=== PATIENT | female | born 1995 | race Caucasian/White ===

== ENCOUNTER 2016-10-24 23:55 | Emergency (ER) | payer OTHER ==
[~2016-10-24] VITALS: Ht 175.3 cm; Wt 62.5 kg
[~2016-10-24 23:55] MED LIST: ALBUAER19 INH; DEXT30TA7 PO
[2016-10-24 23:59] VITALS: TEMP 36.4; Ht 175.3 cm; Wt 62.5 kg
[2016-10-25] MEDS ORDERED: BUPR75TA20 PO (00:24)
[2016-10-25] MEDS ORDERED: OLAN-111 PO (00:24)
[2016-10-25] MEDS ORDERED: VNTHFA/IN INH (00:24)
[2016-10-25] MEDS ORDERED: TOPI100T20 PO (00:24)
[2016-10-25] MEDS ORDERED: BUPR-83 PO (00:24)
[2016-10-25] MEDS ORDERED: HYDR-5688 PO (00:50)
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
[2016-10-25] MEDS ORDERED: NORCO 5/325MG HOME PACK PO ONE (01:00)
[2016-10-25 01:10] VITALS: BP 100/60; PULSE 82; O2SAT 97
--- NOTE | 2016-10-25 06:37 | DIAGNOSTIC IMAGING REPORT ---
LEFT ANKLE MIN 3 VIEWS ROUTINE CLINICAL HISTORY: Left ankle pain status post trauma COMPARISON: None. DISCUSSION: No fractures or dislocations are visualized. IMPRESSION: No fractures or dislocations identified. Electronically signed by: Yusef Armendariz M.D. 10/25/2016 6:36 AM Dictated Date/Time: 10/25/2016 6:35 AM
--- NOTE | 2016-10-25 06:50 | DIAGNOSTIC IMAGING REPORT ---
LEFT FOOT MIN 3 VIEWS ROUTINE CLINICAL HISTORY: Left foot pain status post trauma COMPARISON: None. DISCUSSION: No fractures or dislocations are visualized. There is no evidence for soft tissue swelling. IMPRESSION: No fractures or dislocations identified. Electronically signed by: Yusef Armendariz M.D. 10/25/2016 6:49 AM Dictated Date/Time: 10/25/2016 6:48 AM
== END 2016-10-25 01:12 | disposition home or self-care (01) ==
LOC: C.EDB 23:58 → C.EDC 10-25 01:12
DX: S99.922A Unspecified injury of left foot, initial encounter (principal); V03.00XA Pedestrian on foot injured in collision with car, pick-up truck or van in nontraffic accident, initial encounter; F41.9 Anxiety disorder, unspecified; F31.9 Bipolar disorder, unspecified; F17.200 Nicotine dependence, unspecified, uncomplicated; Z79.899 Other long term (current) drug therapy

== ENCOUNTER 2016-12-11 10:26 | Emergency (ER) | payer OTHER ==
[~2016-12-11] VITALS: Ht 175.3 cm; Wt 56.9 kg
[~2016-12-11 10:26] MED LIST changes: -ALBUAER19 INH; +BUPR-83 PO; +BUPR75TA20 PO; +HYDR-5688 PO; +OLAN-111 PO; +TOPI100T20 PO; +VNTHFA/IN INH
[2016-12-11 10:34] VITALS: BP 134/90; PULSE 103; TEMP 36.9; O2SAT 96; Ht 175.3 cm; Wt 56.9 kg
== END 2016-12-11 10:36 | disposition left against medical advice (07) ==
LOC: C.EDB 10:27 → C.ED 10:36
DX: R06.00 Dyspnea, unspecified (principal)

== ENCOUNTER → 2017-05-16 | Outpatient (CLI) | payer OTHER ==
[~2017-05-16] MED LIST changes: +GADAVIST IV PRN; -HYDR-5688 PO
--- NOTE | 2017-05-16 10:16 | DIAGNOSTIC IMAGING REPORT ---
MRI OF THE BRAIN AND IACS WITHOUT AND WITH IV CONTRAST CLINICAL HISTORY: Dizziness, worsening right-sided hearing loss. Tinnitus. COMPARISON STUDY: Noncontrast head CT performed January 2015 TECHNIQUE: MRI of the brain was performed from the vertex to the skull base utilizing various T1 and T2 weighted sequences. Following the IV administration of 7 mL of Gadavist contrast, additional enhanced images were obtained. FINDINGS: Sagittal T1, axial diffusion, proton density and T2 weighted axial, coronal FLAIR, and pre and post axial T1-weighted images were acquired. These were supplemented with post gadolinium coronal T1 weighted images. No intra or extra-axial mass lesions are visualized. Axial diffusion-weighted images reveal no evidence of acute or subacute infarction. There is no evidence of ventricular dilatation. Proton density T2-weighted and FLAIR images reveal no significant intraparenchymal signal abnormalities. No cerebellopontine angle masses are visualized. The 7th and 8th nerve complexes appear normal bilaterally. There are no abnormal flow voids. There is no evidence of pathologic enhancement. IMPRESSION: Normal MRI of the brain and IACs Electronically signed by: Yusef Armendariz M.D. 05/16/2017 10:15 AM Dictated Date/Time: 05/16/2017 10:11 AM
== END | disposition home or self-care (01) ==
LOC: C.MRI 09:12
PROVIDERS: ATTEND Family Medicine
DX: R42 Dizziness and giddiness (principal); H93.19 Tinnitus, unspecified ear; H91.90 Unspecified hearing loss, unspecified ear

== ENCOUNTER 2020-10-19 15:55 | Inpatient (IN) ==
[2020-10-19] MEDS ORDERED: ONDANSETRON INJ 2 MG/ML 2 ML VIAL IV PRN (17:40)
[2020-10-19] MEDS ORDERED: MAGNESIUM HYDROXIDE SUSP 30 ML UDC PO PRN (17:40)
[2020-10-19] MEDS ORDERED: LACTATED RINGER'S 1,000 ML IV SCH (17:45)
[2020-10-19] MEDS ORDERED: ALBUTEROL HFA 8 GM INHALER INH PRN (17:48)
[2020-10-19] MEDS ORDERED: GENTAMICIN CONSULT ACTIVE PRN (17:59)
[2020-10-19] MEDS: KETOROLAC 30 MG/ML VIAL IV PRN (18:43)
[2020-10-19 19:01] LABS: Amphetamines+Metham, Urine Neg (Neg); Barbiturates, Urine Neg (Neg); Benzodiazepine, Urine Neg (Neg); Cocaine, Urine Neg (Neg); MDMA (Ecstacy), Urine Neg (Neg); Methadone, Urine Neg (Neg); Opiate, Urine Pos (Neg); Phencyclidine, Urine Neg (Neg)
[2020-10-19] MEDS: AMPICILLIN 2,000 MG in SODIUM CHLOR 0.9% AD-VAN 100 ML IV SCH (19:05)
[2020-10-19] MEDS ORDERED: ACETAMINOPHEN 1,000 MG/100 ML VIAL IV PRN (19:27)
[2020-10-19] MEDS: CLINDAMYCIN 900 MG in DEXTROSE 5% 50 ML IV SCH (20:00)
[2020-10-19] MEDS: ACETAMINOPHEN 325 MG TAB PO PRN (20:08)
[2020-10-19] MEDS: GENTAMICIN SULFATE IV SCH (20:56)
[2020-10-19] MEDS: DEXTROSE 5% IV SCH (20:56)
[2020-10-19] MEDS: NICOTINE 21 MG/24 HR TDSY TD SCH (20:57)
[2020-10-19 21:10] LABS: Hematocrit (blood only) 31.1 % (37-47); Hemoglobin 10.6 g/dL (12.0-16.0); Mean Corpuscular Hemoglobin 29.2 pg (25-34); Mean Corpuscular Hgb Conc 34.1 g/dL (32-36); Mean Corpuscular Volume 85.7 fL (80-100); Mean Platelet Volume 8.9 fL (7.4-10.4); Platelet Count 320 K/uL (130-400); RDW Coefficient of Variation 12.6 % (11.5-14.5); RDW Standard Deviation 39.7 fL (36.4-46.3); Red Blood Count 3.63 M/uL (4.2-5.4)
[2020-10-19 22:02] LABS: Basophils # (auto) 0.02 K/uL (0-0.2); Basophils % (auto) 0.2 %; Eosinophils # (auto) 0.07 K/uL (0-0.5); Eosinophils % (auto) 0.6 %; Immature Granulocytes # (auto) 0.03 K/uL (0.00-0.02); Immature Granulocytes % (auto) 0.2 %; Lymphocytes # (auto) 3.46 K/uL (1.2-3.4); Lymphocytes % (auto) 28.1 %; Monocytes # (auto) 0.71 K/uL (0.11-0.59); Monocytes % (auto) 5.8 %; Neutrophils # (auto) 8.01 K/uL (1.4-6.5); Neutrophils % (auto) 65.1 %
[2020-10-20] MEDS: AMPICILLIN 2,000 MG in SODIUM CHLOR 0.9% AD-VAN 100 ML IV SCH ×4 (01:11→18:52)
[2020-10-20] MEDS: CLINDAMYCIN 900 MG in DEXTROSE 5% 50 ML IV SCH ×3 (04:04→19:46)
[2020-10-20 06:30] LABS: Basophils # (auto) 0.01 K/uL (0-0.2); Basophils % (auto) 0.1 %; Eosinophils # (auto) 0.05 K/uL (0-0.5); Eosinophils % (auto) 0.7 %; Hematocrit (blood only) 33.2 % (37-47); Hemoglobin 11.1 g/dL (12.0-16.0); Immature Granulocytes # (auto) 0.02 K/uL (0.00-0.02); Immature Granulocytes % (auto) 0.3 %; Lymphocytes # (auto) 2.03 K/uL (1.2-3.4); Lymphocytes % (auto) 28.6 %; Mean Corpuscular Hemoglobin 28.7 pg (25-34); Mean Corpuscular Hgb Conc 33.4 g/dL (32-36); Mean Corpuscular Volume 85.8 fL (80-100); Mean Platelet Volume 8.9 fL (7.4-10.4); Monocytes # (auto) 0.61 K/uL (0.11-0.59); Monocytes % (auto) 8.6 %; Neutrophils # (auto) 4.37 K/uL (1.4-6.5); Neutrophils % (auto) 61.7 %; Platelet Count 312 K/uL (130-400); RDW Coefficient of Variation 12.6 % (11.5-14.5); RDW Standard Deviation 39.6 fL (36.4-46.3); Red Blood Count 3.87 M/uL (4.2-5.4); White Blood Count 7.09 K/uL (4.8-10.8)
[2020-10-20 07:02] LABS: Creatinine Clr Calc Pharmacy 137.2 ml/min; Est GFR (African American) > 150.0 ml/min; Est GFR (Non-African American) 130.1 ml/min
[2020-10-20] MEDS: KETOROLAC 30 MG/ML VIAL IV PRN (07:36)
--- NOTE | 2020-10-20 07:59 | Gynecologic Progress Note ---
Date of Service October 20, 2020 Assessment & Plan (1) Acute pelvic inflammatory disease (PID): Plan: continue current triple antibiotic regimen- had (+) GC on culture from ER evaluation WBC count has dropped from 12,300 to 7,900 this morning. will get transvaginal ultrasound to re-evaluate ovarian masses. urine drug screen done and is positive for opiates although she was given percocet for pain in the ER. Additional screening for heroin was done as not part of the UDS. Patient has a history of heroin/meth use . Admission and Anticipated Discharge Date Admission Date: October 19, 2020 Subjective patient slept through the night on her stomach but still complains pain is 8/10. More alert this morning then upon arrival on the L&D unit yesterday afternoon. She appeared to be very drowsy and falling asleep while talking to her. no vaginal bleeding now. pain is not worse but not better. No nausea and able to tolerate regular diet. Review of Systems Review of Systems: All systems reviewed & are unremarkable except as noted in HPI & below Physical Exam Constitutional: WD/WN, vitals as above Gastrointestinal (Abdomen): normal bowel sounds, soft, nontender, no hepatosplenomegaly minimal tenderness to deep palpation in lower quadrants bilaterally. no rebound or guarding. Psychiatric: A+Ox3, euthymic affect Results & Data ([facility]) Vital Signs (Past 12 Hours) Vital Signs Temp Pulse Resp BP BP Pulse Ox 10/20/20 03:41 98.6 F 75 16 84/52 L 100 10/19/20 23:07 98.1 F 69 16 89/56 L 98 PG Care Time/CCT Total # of Minutes Spent Total Time Spent with Patient: Total time spent is greater than 50% in coordination of care (as documented) at patient's floor/unit and/or counseling patient: Coding Level of Care Code 07203 Subseq Hosp Care Lvl 2 Diagnoses Acute pelvic inflammatory disease (PID) N73.0
[2020-10-20] MEDS: TOPIRAMATE 50 MG TAB PO SCH (08:59)
--- NOTE | 2020-10-20 09:07 | Ultrasound Report ---
PELVIC ULTRASOUND CLINICAL HISTORY: Bilateral ovarian cysts vs tubo-ovarian COMPARISON STUDY: CT of the abdomen and pelvis October 14, 2020. Pelvic ultrasound October 17, 2020. TECHNIQUE: Transabdominal sonography of the pelvis was performed. FINDINGS: The uterus measures 10 x 5.2 x 4.9 cm. A small amount of fluid within the endometrial canal is noted. As before, the left ovary is enlarged, measuring 6.8 x 5.8 x 7 cm. Allowing for measuremen t variability, this is similar to prior ultrasound. Several complex left adnexal lesions are noted, t he largest of which measures 5.8 cm. This is similar to prior ultrasound. This contains low level ech oes. There is color flow within each ovary. A few complex right adnexal lesions measure up to 2.7 cm. The right ovary measures 5.4 x 4.8 x 3.4 cm. There is no free fluid. IMPRESSION: No significant change in multiple complex bilateral ovarian/adnexal lesions since ultraso und of October 17, 2020. The largest is a 5.8 cm left adnexal lesion which contains low-level echoes. A tubo-ovarian abscess is favored. A complex cyst or endometrioma are also within the differential. Sim ilar differential for the right adnexal lesions. ACT 112: Negative or not required by law. Electronically signed by: Lyle Medina M.D. 10/20/2020 9:05 AM
--- NOTE | 2020-10-20 09:52 | Communication Note ---
Date of Service: October 20, 2020 Assuming care of patient. Discussed events to date with Dr. Kumar prior to her departure this AM. Patient with GC+ culture and likely bilateral TOA's present since several weeks ago in retrospective review of multiple ER visits with ultrasound. Seen in office yesterday and found to have pelvic pain c/w PID. As she met criteria for inpatient management with IV antibiotics, she was admitted and started on triple coverage with ampicillin, gentamicin and clindamycin. Ultrasound done earlier this morning was reviewed by this MD and shows stability / no further growth of TOAs, with no evidence of torsion currently. She is afebrile with resolution of leukocytosis, improvement in pain, and plan for now is at least 24 hours of inpatient IV antibiotic therapy. Following this "cooling off" stage, a decision can be made regarding surgical drainage vs outpatient management. Of note, this patient does have a positive drug screen which may be consistent with prescribed opiates, but given her history of IVDA and what was felt to be excessive sedation on her arrival, there is also a pending send-out test to clarify the presence/absence of drugs of abuse. This information would be helpful to have for safe anesthesia should surgical drainage be deemed necessary.
[2020-10-20] MEDS: ACETAMINOPHEN 325 MG TAB PO PRN (11:36)
--- NOTE | 2020-10-20 13:03 | Pharmacy Report ---
Pharmacy Abx Dose Short Note - Date of Service October 20, 2020 - Assessment & Plan Assessment 25 year old F receiving triple antibiotic therapy for pelvic inflammatory disease, possible tubo-ovarian abscess * Leukocytosis resolved, patient afebrile Plan Continue ampicillin, clindamycin and gentamicin Gentamicin * 5 mg/kg (based on actual body weight) IV q 24 hours * Random level obtained ~9 hours after first dose indicates q24h dosing is appropriate Pharmacy will continue to follow and will adjust dose/frequency as necessary. Thank you.
[2020-10-20] MEDS ORDERED: SODIUM CHLORIDE 0.9% 250 ML IV PRN (15:20)
[2020-10-20] MEDS: GENTAMICIN SULFATE IV SCH (21:58)
[2020-10-20] MEDS: DEXTROSE 5% IV SCH (21:58)
[2020-10-20] MEDS: NICOTINE 21 MG/24 HR TDSY TD SCH (22:04)
[2020-10-21] MEDS: AMPICILLIN 2,000 MG in SODIUM CHLOR 0.9% AD-VAN 100 ML IV SCH ×2 (00:43→06:31)
[2020-10-21] MEDS: CLINDAMYCIN 900 MG in DEXTROSE 5% 50 ML IV SCH ×2 (03:54→11:56)
[2020-10-21] MEDS: KETOROLAC 30 MG/ML VIAL IV PRN (06:27)
[2020-10-21 06:57] LABS: Basophils # (auto) 0.01 K/uL (0-0.2); Basophils % (auto) 0.2 %; Eosinophils # (auto) 0.08 K/uL (0-0.5); Eosinophils % (auto) 1.2 %; Hemoglobin 10.8 g/dL (12.0-16.0); Immature Granulocytes # (auto) 0.01 K/uL (0.00-0.02); Immature Granulocytes % (auto) 0.2 %; Lymphocytes % (auto) 30.6 %; Mean Corpuscular Hgb Conc 33.8 g/dL (32-36); Mean Corpuscular Volume 85.8 fL (80-100); Monocytes # (auto) 0.67 K/uL (0.11-0.59); Monocytes % (auto) 10.3 %; Neutrophils # (auto) 3.76 K/uL (1.4-6.5); Neutrophils % (auto) 57.5 %; Platelet Count 309 K/uL (130-400); RDW Coefficient of Variation 12.6 % (11.5-14.5); RDW Standard Deviation 39.6 fL (36.4-46.3); Red Blood Count 3.73 M/uL (4.2-5.4); White Blood Count 6.53 K/uL (4.8-10.8)
--- NOTE | 2020-10-21 07:34 | Gynecologic Progress Note ---
Date of Service October 21, 2020 Assessment & Plan (1) Acute pelvic inflammatory disease (PID): Plan: Gonococcal PID with bilateral TOA and pyometra (or at least fluid in uterine cavity) on ultrasound. Pain management has been accomplished without narcotics for the most part, given her history of drug abuse, but the patient did utilize percocet Rx'ed at ER recently, hence her positive drug screen (heroin negative on secondary testing). Some worsening clinically this morning despite toradol 30min prior to exam. However her WBC remain normal and she is afebrile, so suspicion for rapid worsening or rupture is low. Will see what this morning's US shows, and decision today regarding treatment plan. May involve ongoing medical mgmt, or could consider IR drainage at outside institution. Admission and Anticipated Discharge Date Admission Date: October 19, 2020 Subjective Patient seen this morning with Dr. Goins who is on-coming MD coverage, and who saw her in the office two days ago. Patient notes this morning that her pain, which had been improved, has once again become worse since about 7am and also feels like it has "moved down" lower in her abdomen. She has been NPO since midnight for possible intervention this morning. Prior to that, she was eating regular diet without difficulty. Physical Exam Physical Exam: Resting supine, moving minimally but able to reposition when asked. VSS and WNL as above. Abdomen soft, nondistended. Tender with palpation across both lower quadrants and suprapubic area. No rebound or guarding. Has been voiding without difficulty. Internal/pelvic exam deferred; pelvic US ordered to be done within the next hour. Results & Data ([facility]) Vital Signs (Past 12 Hours) Vital Signs Temp Pulse Resp BP Pulse Ox 10/21/20 04:23 97.9 F 65 16 88/56 L 99 10/20/20 23:22 98.6 F 77 14 90/58 L 99 10/20/20 19:27 98.1 F 85 18 99/62 L PG Care Time/CCT Total # of Minutes Spent Total Time Spent with Patient: Total time spent is greater than 50% in coordination of care (as documented) at patient's floor/unit and/or counseling patient: Coding Level of Care Code 65947 Subseq Hosp Care Lvl 2 Diagnoses Acute pelvic inflammatory disease (PID) N73.0
[2020-10-21] MEDS ORDERED: CALCIUM CARBONATE 500 MG CHEWABLE TAB ONE (07:40)
[2020-10-21] MEDS ORDERED: CALCIUM CARBONATE 500 MG CHEWABLE TAB PO PRN (08:51)
[2020-10-21] MEDS: TOPIRAMATE 50 MG TAB PO SCH (09:27)
[2020-10-21] MEDS ORDERED: ALUMINUM/MAGNESIUM SUSP 18 ML, LIDOCAINE VISCOUS 2% SOLN 6 ML, BARCODE IDENTIFIER 1 EA PO ONE (10:06)
--- NOTE | 2020-10-21 10:09 | XRay Report ---
XR chest 1V portable HISTORY: chest tingling COMPARISON: Chest 10/17/2020. FINDINGS: The lungs are clear. Cardiac silhouette is normal in size. No pleural effusions. No pneumot horax. IMPRESSION: No acute process. ACT 112: Negative or not required by law. Electronically signed by: Ad Leija M.D. 10/21/2020 10:07 AM
[2020-10-21 10:29] LABS: Creatinine Clr Calc Pharmacy 127.6 ml/min; Est GFR (African American) 147.2 ml/min
--- NOTE | 2020-10-21 10:43 | Hospitalist Consultation ---
Date of Consultation October 21, 2020 Assessment & Plan (1) Chest pain: GERD vs. secondary gonococcal involvement (endocarditis) vs. Musculoskeletal vs. Pulmonary process - ECG no acute change- nonspecific ST - CXR negative for acute process - Patient has been NPO, current smoker, past NSAID use- on Tylenol and Toradol for pain IV - GI cocktail followed by daily Protonix - As per her history- although no murmur or further systemic sepsis will obtain ECHO - She has not had cyclical fevers - blood cultures x2 now - BMP with electrolytes for now including ionized calcium and PO4- would recommend repleting as needed- To primary team - If persists further evaluation of pharyngeal involvement of gonococcal infx. ABX per primary team Pain control per primary team VTE per primary team Supervising Physician Co-Signing Physician Notes HEDIS REVIEW NURSE Supervision note: I have personally seen and examined the patient and discussed and verified the kelley points of the history and physical along with the plan with JOSETTE Rubio with the following exceptions and/or additions: This patient is a 25-year-old female with history of asthma, ADHD, migraine headaches, and methamphetamine and heroin abuse, who is admitted for pelvic pain and ovarian masses presumably TOA versus endometriomas. Hospitalist service was consulted for acute onset of chest pain that started overnight and has been constant. The pain is burning in nature and was relieved with a GI cocktail this morning. She does not have a history of reflux but has been on multiple antibiotics and receiving IV NSAIDs. History and ROS reviewed Vitals reviewed Gen: AAOx3, NAD HEENT: Anicteric sclerae, EOMI CV: RRR no mgr nl S1S2 Pulm: CTAB no wcr Abd: +BS soft NT ND no masses or hernias Ext: No edema, no calf tenderness Skin: No rashes, warm/dry Neuro: Full strength throughout Laboratory values reviewed ECG reviewed Chest x-ray reviewed Echocardiogram-normal 25-year-old female here with atypical chest pain-likely GI in nature -She is now tolerating p.o. and recommend transition to Protonix 40 mg p.o. 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 History of Present Illness Reason for Consultation: chest pain Requesting Physician: Dr. Goins Attending Physician: Trinidad Cruz MD, FACOG History of Present Illness 25 YOF with past medical history: methamphetamine use, anxiety with bipolar. Patient was admitted to the OBGYN floor secondary to (+) GC culture done in the EMD on . She was admitted for PID and is currently on Amp, Gent, Clinda. Hosptialist service was consulted for onset of chest pain and tingling to her chest. The patient states that the pain started last night and into this morning, that it comes and goes without any change in activity or predisposing symptoms. The pain is in the left center of chest along her rib cage on the left and will go to the right side and up to her throat. She does feel that this is associated with "bubbling" feeling and that it can feel like a "burp" but is unable to burp. The pain is not associated with change in position, shortness of breath and it is not reproducible. ECG was done, CXR done. Vital signs reviewed and medications reviewed. Impression: Likely GERD/GI component secondary to being NPO and history of NSAID use, current smoker.- GI Cocktail ordered - However with her history of drug use and gonococcal infection will obtain an ECHO to rule out gonococcal endocarditis or other bacterial endo. - Blood culture x2 - BMP Recommend: As above, added Protonix 40 mg IV daily to start tomorrow following GI cocktail now, will follow up with ECHO results and Blood cultures Thank you for allowing us to participate in the care of this patient. Please call for any changes while we await diagnostic results. Allergies Allergy/AdvReac Type Severity Reaction Status Date / Time Fish Containing Products Allergy Intermediate Gastrointestinal Verified 10/21/20 12:33 Upset fish derived Allergy Intermediate Gastrointestinal Verified 10/21/20 12:33 Upset fish oil Allergy Unknown Unknown Verified 10/21/20 12:33 soy AdvReac Intermediate Gastrointestinal Verified 10/19/20 15:06 Upset Home Medications Medication Instructions Recorded Confirmed Type albuterol sulfate 90 mcg/actuation 1 puff INHALATION QID PRN 08/07/18 10/19/20 History aerosol inhaler epinephrine 0.3 mg/0.3 mL 0.3 mg IM DIRECTED PRN 05/26/20 10/19/20 History injection, auto-injector topiramate 50 mg tablet 50 mg PO QAM 05/30/20 10/19/20 History acetaminophen 500 mg tablet 1,000 mg PO Q6H PRN 10/06/20 10/19/20 History (Tylenol Extra Strength) norgestimate-ethinyl estradiol 1 tab PO DAILY #28 tab 10/06/20 10/19/20 Rx 0.18 mg/0.215mg/0.25mg-35 mcg(28)tablet (Ortho Tri-Cyclen (28)) naproxen sodium 220 mg tablet 440 mg PO Q12H PRN 10/14/20 10/19/20 History (Aleve) ciprofloxacin HCl 250 mg tablet 250 mg PO BID #20 tab 10/17/20 10/19/20 Rx metronidazole 250 mg tablet 250 mg PO TID #30 tab 10/17/20 10/19/20 Rx Patient History Medical History (Updated 10/21/20 @ 10:35 by JOSETTE Bermeo) Bronchitis Endometriosis History of miscarriage IV drug abuse Migraine Ovarian cyst Surgical History No pertinent past surgical history Family History Aunt Breast cancer Other No pertinent family history Denies family history of Ovarian cancer Colorectal cancer Social History Smoking Status: Current every day smoker Tobacco Type: Cigarettes Cigarettes Per Day: 20; Second Hand Exposure: No; Do You Dip or Chew Tobacco: No; Tobacco Cessation Education Requested by Patient: No Hx Alcohol Use: No Hx Substance Use: Yes Last Used Substance Other:: 1 year Substance Use Type Other:: IV metha and IV heroin Preferred Language: Finnish Communication Ability: Effective 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 Required: No Beliefs That Will Affect Care: None marital status: Single Current Living Situation: Family Current Living Situation Comment: Incarcerated current occupational status: unemployed Other Information That Helps Us Care for You: No Feels Safe at Home: Yes Safety Concerns: Feels Safe At This Time Assistive Devices: None Review of Systems Review of Systems: REVIEW OF SYSTEMS: Constitutional: No fever, sweats or chills Eyes: No diplopia, no worsening or blurred vision ENT: normal hearing, no trouble swallowing Respiratory: No cough, sputum, dyspnea at rest or on exertion Cardiovascular: (+) chest pain, tightness, NO palpitations Abdomen: (+) lower abdominal pain, NO nausea, vomiting, diarrhea or constipation Musculoskeletal: No joint pain, calf pain, swelling Neurologic: No weakness, numbness/tingling, or balance problems Psychiatric: (+) anxiety or depression Skin: No rash or itch Physical Exam Physical Exam: PHYSICAL EXAM: General: awake, alert, no apparent distress Head: Normocephalic, atraumatic ENT: PERRLA, EOMI, no pharyngeal exudate, mucous membranes moist, no oral ulcerations Neuro: AAO x 3, speech clear and appropriate, strength intact bilaterally 5/5, sensation intact and equal all extremities and dermatomes, no focal deficits Chest: equal rise and fall of the chest, no accessory muscle use, no heaves or thrills, Clear to auscultation, on room air, Cardiac: Regular rate and rhythm, ECG reviewed, skin warm dry, cap refill <3 seconds, peripheral pulses +2 no JVD, NO murmur, no edema GI: NABS x 4 quadrants, soft, nontender to palpation, no rebound, guarding or tenderness : Spontaneously voiding, no pain, no CVA tenderness, MSK: No pain with palpation to chest wall, or intercostals, no pain with palpation of cervical and thoracic spine, no pain with palpation of paraspinous muscles. Psych: Normal mood and affect Skin: no rash or erythema or systemic involvement noted. Results & Data Results & Data ([facility]) Vital Signs (Past 12 Hours) Vital Signs Temp Pulse Resp BP BP Pulse Ox 10/21/20 07:24 36.9 C 76 20 90/56 L 100 10/21/20 04:23 36.6 C 65 16 88/56 L 99 10/20/20 23:22 37 C 77 14 90/58 L 99 Laboratory Results Abnormal Labs 10/19/20 10/19/20 10/20/20 18:00 20:30 06:07 WBC 12.30 H RBC 3.63 L Hgb 10.6 L Hct 31.1 L Neut # (Auto) 8.01 H Lymph # (Auto) 3.46 H Ju[place] # (Auto) 0.71 H Immature Gran # (Auto) 0.03 H Creatinine 0.53 L Urine Opiates Screen Pos H 10/20/20 10/21/20 10/21/20 06:07 06:21 10:01 WBC RBC 3.87 L 3.73 L Hgb 11.1 L 10.8 L Hct 33.2 L 32.0 L Neut # (Auto) Lymph # (Auto) [place] # (Auto) 0.61 H 0.67 H Immature Gran # (Auto) Creatinine 0.57 L Urine Opiates Screen Diagnostic Findings Pelvis Ultrasound 10/20/20 06:55 PELVIC ULTRASOUND CLINICAL HISTORY: Bilateral ovarian cysts vs tubo-ovarian COMPARISON STUDY: CT of the abdomen and pelvis October 14, 2020. Pelvic ultrasound October 17, 2020. TECHNIQUE: Transabdominal sonography of the pelvis was performed. FINDINGS: The uterus measures 10 x 5.2 x 4.9 cm. A small amount of fluid within the endometrial canal is noted. As before, the left ovary is enlarged, measuring 6.8 x 5.8 x 7 cm. Allowing for measurement variability, this is similar to prior ultrasound. Several complex left adnexal lesions are noted, the largest of which measures 5.8 cm. This is similar to prior ultrasound. This contains low level echoes. There is color flow within each ovary. A few complex right adnexal lesions measure up to 2.7 cm. The right ovary measures 5.4 x 4.8 x 3.4 cm. There is no free fluid. IMPRESSION: No significant change in multiple complex bilateral ovarian/adnexal lesions since ultrasound of October 17, 2020. The largest is a 5.8 cm left adnexal lesion which contains low-level echoes. A tubo-ovarian abscess is favored. A complex cyst or endometrioma are also within the differential. Similar differential for the right adnexal lesions. ACT 112: Negative or not required by law. Electronically signed by: Lyle Medina M.D. 10/20/2020 9:05 AM Chest X-Ray 10/21/20 09:30 XR chest 1V portable HISTORY: chest tingling COMPARISON: Chest 10/17/2020. FINDINGS: The lungs are clear. Cardiac silhouette is normal in size. No pleural effusions. No pneumothorax. IMPRESSION: No acute process. ACT 112: Negative or not required by law. Electronically signed by: Ad Leija M.D. 10/21/2020 10:07 AM Medications Administered Home Medications albuterol sulfate 90 mcg/actuation aerosol inhaler 1 puff INHALATION QID PRN 08/07/18 [History Confirmed 10/19/20] epinephrine 0.3 mg/0.3 mL injection, auto-injector 0.3 mg IM DIRECTED PRN 05/26/20 [History Confirmed 10/19/20] topiramate 50 mg tablet 50 mg PO QAM 05/30/20 [History Confirmed 10/19/20] acetaminophen 500 mg tablet (Tylenol Extra Strength) 1,000 mg PO Q6H PRN 10/06/20 [History Confirmed 10/19/20] norgestimate-ethinyl estradiol 0.18 mg/0.215mg/0.25mg-35 mcg(28)tablet (Ortho Tri-Cyclen (28)) 1 tab PO DAILY #28 tab 10/06/20 [Rx Confirmed 10/19/20] naproxen sodium 220 mg tablet (Aleve) 440 mg PO Q12H PRN 10/14/20 [History Confirmed 10/19/20] ciprofloxacin HCl 250 mg tablet 250 mg PO BID #20 tab 10/17/20 [Rx Confirmed 10/19/20] metronidazole 250 mg tablet 250 mg PO TID #30 tab 10/17/20 [Rx Confirmed 10/19/20] Active Medications Acetaminophen (Acetaminophen 325 Mg Tab) 650 mg PO Q4H PRN PRN Reason: Pain or Fever Stop: 11/18/20 17:39 Last Admin: 10/20/20 11:36 Dose: 650 mg Documented by: Albuterol (Albuterol Hfa 8 Gm Inhaler) 1 puffs INH QID PRN PRN Reason: Shortness Of Breath Stop: 11/18/20 17:47 Calcium Carbonate (Calcium Carbonate 500 Mg Chewable Tab) 500 mg PO Q4 PRN PRN Reason: Indigestion Stop: 11/20/20 08:50 Lactated Ringer's (Lr) 1,000 mls @ 0 mls/hr IV .Q0M [facility] Stop: 11/18/20 17:44 Last Infusion: 10/19/20 19:30 Dose: 0 mls/hr Documented by: Ampicillin Sodium 2,000 mg/ (Sodium Chloride) 100 mls @ 200 mls/hr IV Q6H [facility] Stop: 10/29/20 18:59 Last Infusion: 10/21/20 07:36 Dose: Infused Documented by: Clindamycin Phosphate 900 mg/ (Dextrose) 56 mls @ 112 mls/hr IV Q8H [facility] Stop: 10/29/20 19:29 Last Infusion: 10/21/20 04:30 Dose: Infused Documented by: Acetaminophen (Ofirmev) 1,000 mg in 100 mls @ 400 mls/hr IV Q8H PRN; Protocol PRN Reason: Moderate Pain Stop: 10/22/20 19:26 Last Infusion: 10/21/20 07:50 Dose: Infused Documented by: Gentamicin Sulfate 270 mg/ (Dextrose) 106.75 mls @ 100 mls/hr IV Q24H [facility] Stop: 10/29/20 19:59 Last Infusion: 10/20/20 23:18 Dose: Infused Documented by: Sodium Chloride (Nss) 250 mls @ 15 mls/hr IV .[id number] PRN PRN Reason: Transfusion Stop: 11/19/20 15:19 Last Admin: 10/20/20 07:15 Dose: 15 mls/hr Documented by: Pantoprazole Sodium 40 mg/ (Syringe) 10 mls @ 5 mls/min IV DAILY@1100 [facility] Stop: 11/20/20 10:59 Ketorolac Tromethamine (Ketorolac 30 Mg/Ml Vial) 30 mg IV Q6H PRN PRN Reason: Pain Stop: 10/24/20 17:44 Last Admin: 10/21/20 06:27 Dose: 30 mg Documented by: Magnesium Hydroxide (Magnesium Hydroxide Susp 30 Ml Udc) 30 ml PO Q6H PRN PRN Reason: Constipation Stop: 11/18/20 17:39 Miscellaneous (*Norgest-Ethinyl Axmhqtdvn-Jvrslzzk-Tykxuq*Order Awaiting Action) 1 ea N/A QS [facility] Stop: 11/19/20 00:00 Last Admin: 10/21/20 07:34 Dose: Not Given Documented by: Miscellaneous (Remove Nicoderm Patch) 1 ea N/A Q24H [facility] Stop: 11/19/20 20:58 Last Admin: 10/20/20 22:04 Dose: 1 ea Documented by: Miscellaneous Information (Gentamicin Consult Active) 1 ea N/A UD PRN PRN Reason: Consult Stop: 11/18/20 17:58 Nicotine (Nicotine 21 Mg/24 Hr Tdsy) 21 mg TD QPM [facility] Stop: 11/18/20 20:59 Last Admin: 10/20/20 22:04 Dose: 21 mg Documented by: Ondansetron HCl (Ondansetron Inj 2 Mg/Ml 2 Ml Vial) 4 mg IV Q6H PRN PRN Reason: Nausea And Vomiting Stop: 11/18/20 17:39 Last Admin: 10/20/20 18:58 Dose: 4 mg Documented by: Topiramate (Topiramate 50 Mg Tab) 50 mg PO QAM [facility] Stop: 11/19/20 08:59 Last Admin: 10/21/20 09:27 Dose: Not Given Documented by: ECG Additional Comments: Normal sinus rhythm with sinus arrhythmia Incomplete right bundle branch block Borderline ECG When compared with ECG of 17-OCT-2020 17:06, Vent. rate has decreased BY 42 BPM Incomplete right bundle branch block is now Present QT has shortened. RBB has been present in July PG Care Time/CCT Total # of Minutes Spent Total Time Spent with Patient: Total time spent is greater than 50% in coordination of care (as documented) at patient's floor/unit and/or counseling patient: Coding Level of Care Code 58869 Inpt Consult Level 3 Diagnoses Chest pain R07.9
[2020-10-21] MEDS ORDERED: PANTOprazole 40 MG in SYRINGE 0 ML IV SCH (11:00)
--- NOTE | 2020-10-21 12:33 | Gynecologic Progress Note ---
Date of Service October 21, 2020 Assessment & Plan (1) Ovarian cyst: Plan: Took over care of the patient today at 830 this morning I spent considerable time not only talking with the patient today but reviewing her chart and speaking with radiology on her imaging today Dr. ePna With radiology we carefully reviewed the ultrasounds from the last week as well as the CT scan In summary there are no changes there is no increases in the size of the masses on her ovaries additionally the appearance of the ovaries is more like that of an endometrioma bilaterally. On CT scan we looked at the bilateral adnexal masses and there was no gas in there which is far less consistent with abscess. I then reviewed with the patient the fact that her white blood cell count is now completely normal she has absolutely no temperature elevations as well. While she did have a positive Neisseria gonorrhea test she has not been sexually active in 4 months and she stated this to me repeatedly. I discussed that I think the more likely diagnosis here is likely bilateral endo metriomas and endometriosis I feel like a lot of her pain may be well caused by this. Certainly I cannot 100% rule out infection as she did have a positive Neisseria gonorrhea so we will switch from IV antibiotics to oral antibiotics as again there were no temperature elevations and no elevation of the white count which my clinical experience makes bilateral tubo-ovarian abscesses far less likely I will continue her on Cipro and Flagyl orally we discussed possible discharge either later today or tomorrow I contacted my office as well we will make arrangements for her to be seen as an outpatient JOSÉ by a surgeon highly experienced in complex endometriosis surgery I have suggested Dr. Morgan at [facility] All this was carefully reviewed with the patient and her nurse and again I did express that it is impossible to be certain situations but just the clinical the laboratory the imaging and the overall picture did not fit with this being a bilateral TOA situation I do not think urgent surgery is the ideal option here and certainly if she has bilateral large endometriomas I would rather have her seen by a highly skilled endometriosis surgeon like Dr. Morgan we did discuss her she is an alternative as well my office seems to feel that Dr. Morgan can be seen by her insurance (2) Pelvic pain: Admission and Anticipated Discharge Date Admission Date: October 19, 2020 Results & Data ([facility]) Vital Signs (Past 12 Hours) Vital Signs Temp Pulse Resp BP BP Pulse Ox 10/21/20 12:01 98.4 F 81 18 100/64 100 10/21/20 07:24 98.4 F 76 20 90/56 L 100 10/21/20 04:23 97.9 F 65 16 88/56 L 99 PG Care Time/CCT Total # of Minutes Spent Total Time Spent with Patient: Total time spent is greater than 50% in co ordination of care (as documented) at patient's floor/unit and/or counseling patient: Coding Level of Care Code 21851 Office/Outpt Visit, Est Diagnoses Ovarian cyst N83.201; N83.202 Laterality: bilateral Pelvic pain R10.2 (1) Ovarian cyst Laterality: bilateral Qualified Code(s): N83.201 - Unspecified ovarian cyst, right side; N83.202 - Unspecified ovarian cyst, left side
[2020-10-21 12:42] LABS: BUN Creatinine Ratio 15.7 (10-20); C Reactive Protein 0.57 mg/dl (0-0.29); Calcium 9.1 mg/dl (8.5-10.1); Creatinine Clr Calc Pharmacy 132.2 ml/min; Est GFR (Non-African American) 128.5 ml/min; Potassium 3.9 mmol/L (3.5-5.1)
[2020-10-21] MEDS: oxyCODONE/ACETAMINOPHEN 5mg/325mg TAB PO PRN ×2 (12:48→19:45)
[2020-10-21] MEDS: metroNIDAZOLE 500 MG TAB PO SCH ×2 (13:16→21:06)
[2020-10-21] MEDS: CIPROFLOXACIN 250 MG TAB PO SCH (13:16)
--- NOTE | 2020-10-21 13:20 | Ultrasound Report ---
EXAMINATION: PELVIC ULTRASOUND CLINICAL HISTORY: follow TOA, on IV Abx COMPARISON STUDY: October 20, 2020 FINDINGS: The uterus measured 9.2 x 4.8 x 5.0 cm in size.. The endometrial stripe measured 1.3 cm. Redemonstration of the fluid within the endometrial canal, st able since prior.. The right ovary measured 4.2 x 3.3 x 3.0 cm. Normal blood flow is seen. There is complex cystic structure measuring 3.3 x 2.5 x 2.8 cm and shows internal hypoechoic and isoe choic areas. The left ovary measured 6.0 x 5.2 x 5.4 cm. Shows normal blood flow. There 2 complex cystic structures are seen adjacent to the left ovary, largest is measuring 5.0 x 4.3 x 5.6 cm which shows peripheral blood flow and septation. . There is no ultrasonographic evidence of ovarian torsion. It should be noted that ovarian torsion can be present with normal Doppler ultrasonographic findings. There was no evidence of pathologic free pelvic fluid. IMPRESSION: 1. Mild interval decrease in size of the right and left ovaries. Bilateral complex cystic structures adjacent to the right and left ovaries, which appears smaller on the left and slightly more prominen t on the right. Comparison is difficult due to lack of transvaginal evaluation during prior study. Ab ove-mentioned findings likely represent tubo-ovarian abscess in appropriate clinical settings. Differ ential diagnosis also include endometrioma. Follow-up evaluation is per clinical protocol. ACT 112: Negative or not required by law. The above report was generated using voice recognition software. It may contain grammatical, syntax o r spelling errors. Electronically signed by: Oma Villanueva DO 10/21/2020 1:19 PM
--- NOTE | 2020-10-21 14:09 | XCELERA ---
[id number]
--- NOTE | 2020-10-21 14:22 | Electrocardiogram Report ---
Test Reason : Blood Pressure : / mmHG Vent. Rate : 062 BPM Atrial Rate : 062 BPM P-R Int : 154 ms QRS Dur : 104 ms QT Int : 388 ms P-R-T Axes : 066 073 059 degrees QTc Int : 393 ms Normal sinus rhythm with sinus arrhythmia Incomplete right bundle branch block Borderline ECG When compared with ECG of 17-OCT-2020 17:06, Vent. rate has decreased BY 42 BPM Incomplete right bundle branch block is now Present Confirmed by Raman Sanchez ([id number]) on 10/21/2020 2:21:36 PM Referred By: Trinidad Cruz Confirmed By:Raman Sanchez
[2020-10-21 15:06] LABS: Basophils # (auto) 0.01 K/uL (0-0.2); Basophils % (auto) 0.1 %; Eosinophils # (auto) 0.12 K/uL (0-0.5); Eosinophils % (auto) 1.8 %; Hematocrit (blood only) 35.5 % (37-47); Immature Granulocytes # (auto) 0.02 K/uL (0.00-0.02); Immature Granulocytes % (auto) 0.3 %; Lymphocytes # (auto) 2.04 K/uL (1.2-3.4); Lymphocytes % (auto) 29.9 %; Mean Corpuscular Hemoglobin 29.2 pg (25-34); Mean Corpuscular Hgb Conc 33.8 g/dL (32-36); Mean Corpuscular Volume 86.4 fL (80-100); Mean Platelet Volume 8.9 fL (7.4-10.4); Monocytes # (auto) 0.76 K/uL (0.11-0.59); Monocytes % (auto) 11.1 %; Neutrophils # (auto) 3.87 K/uL (1.4-6.5); Neutrophils % (auto) 56.8 %; Platelet Count 392 K/uL (130-400); RDW Coefficient of Variation 12.7 % (11.5-14.5); RDW Standard Deviation 40.6 fL (36.4-46.3); Red Blood Count 4.11 M/uL (4.2-5.4); White Blood Count 6.82 K/uL (4.8-10.8)
[2020-10-21] MEDS: NICOTINE 21 MG/24 HR TDSY TD SCH (21:06)
[2020-10-22] MEDS: CIPROFLOXACIN 250 MG TAB PO SCH (01:03)
[2020-10-22] MEDS: oxyCODONE/ACETAMINOPHEN 5mg/325mg TAB PO PRN ×2 (01:03→06:06)
[2020-10-22 06:45] LABS: Basophils # (auto) 0.01 K/uL (0-0.2); Basophils % (auto) 0.2 %; Eosinophils # (auto) 0.12 K/uL (0-0.5); Eosinophils % (auto) 2.3 %; Hematocrit (blood only) 31.5 % (37-47); Hemoglobin 10.6 g/dL (12.0-16.0); Immature Granulocytes # (auto) 0.01 K/uL (0.00-0.02); Immature Granulocytes % (auto) 0.2 %; Lymphocytes # (auto) 1.81 K/uL (1.2-3.4); Lymphocytes % (auto) 35.4 %; Mean Corpuscular Hemoglobin 28.9 pg (25-34); Mean Corpuscular Hgb Conc 33.7 g/dL (32-36); Mean Corpuscular Volume 85.8 fL (80-100); Mean Platelet Volume 9.1 fL (7.4-10.4); Monocytes # (auto) 0.51 K/uL (0.11-0.59); Neutrophils # (auto) 2.66 K/uL (1.4-6.5); Neutrophils % (auto) 51.9 %; Platelet Count 300 K/uL (130-400); RDW Coefficient of Variation 12.7 % (11.5-14.5); RDW Standard Deviation 39.9 fL (36.4-46.3); Red Blood Count 3.67 M/uL (4.2-5.4); White Blood Count 5.12 K/uL (4.8-10.8)
--- NOTE | 2020-10-22 07:07 | Gynecologic Progress Note ---
Date of Service October 22, 2020 Assessment & Plan (1) Ovarian cyst: Plan: Patient reports today that her pain is significantly better she has been off IV antibiotics and is using ibuprofen and Percocet for pain control she has no abnormal discharge now there are no temperature elevations was discussed per the note yesterday I think this is much less likely a tubo-ovarian abscess problem however with a positive Neisseria gonorrhea and the inability be Apsley certain at this time we will continue the Cipro and Flagyl we will let her go home today patient is agreeable to this she has follow-up with the referral surgeon for the endometriomas in our office has contacted them and they will contact her with an appointment within the next week Admission and Anticipated Discharge Date Admission Date: October 19, 2020 Subjective Patient feels better her pain is less she has no vaginal discharge that is abnormal at this time she has no temperature elevation she wishes to go home Physical Exam Physical Exam: Abdomen is soft and nontender patient appears well Results & Data ([facility]) Vital Signs (Past 12 Hours) Vital Signs Temp Pulse Resp BP Pulse Ox 10/22/20 01:05 97.9 F 74 14 89/60 L 98 10/21/20 19:50 98.4 F 62 16 103/70 98 PG Care Time/CCT Total # of Minutes Spent Total Time Spent with Patient: Total time spent is greater than 50% in coordination of care (as documented) at patient's floor/unit and/or counseling patient: Coding Level of Care Code 20052 Office/Outpt Visit, Est Diagnoses Ovarian cyst N83.201; N83.202 Laterality: bilateral (1) Ovarian cyst Laterality: bilateral Qualified Code(s): N83.201 - Unspecified ovarian cyst, right side; N83.202 - Unspecified ovarian cyst, left side
[2020-10-22 07:29] LABS: Creatinine Clr Calc Pharmacy 123.2 ml/min; Est GFR (African American) 145.6 ml/min; Est GFR (Non-African American) 125.6 ml/min
[2020-10-22] MEDS ORDERED: PANTOprazole 40 MG TAB PO SCH (09:00)
[2020-10-22] MEDS: TOPIRAMATE 50 MG TAB PO SCH (09:41)
[2020-10-22] MEDS: metroNIDAZOLE 500 MG TAB PO SCH (09:42)
[2020-10-22 11:41] LABS: Codeine Urine NEGATIVE ng/mL (<50); Hydrocodone Urine NEGATIVE ng/mL (<50); Hydromor Urine NEGATIVE ng/mL (<50); Morphine Urine NEGATIVE ng/mL (<50); Norhydrocodone Conf Ur NEGATIVE ng/mL (<50); Noroxycodone Urine 972 ng/mL (<50); Oxycodone Urine 727 ng/mL (<50); Oxymorph Urine 2280 ng/mL (<50)
--- NOTE | 2020-10-26 08:03 | Discharge Summary ---
Date of Service October 26, 2020 Admission HPI Per Admitting Provider Patient was admitted for possible tubo-ovarian abscesses IV antibiotics were started by Dr. Kumar and the patient's course was followed her white blood cell count was initially elevated but this returned to normal further imaging was done see assessment and plan Discharge Data Consultations 10/21/20 09:09 Consult Hospitalist Stat Hospital Course (1) Ovarian cyst: The patient's course was as follows her symptoms improved during her hospitalization her white blood cell count normalized the patient never had an elevated temperature she did not have symptoms of a typical tubo-ovarian abscess. On reassessment of further imaging and reviewed by radiology with myself it was thought that these bilateral ovarian cysts more likely represented endometriomas then tubo-ovarian abscesses. This information was relayed with the patient and I have set her up for an appointment with Dr. Morgan at [facility]. It should be noted I continued her on Cipro and Flagyl as occasionally endometriomas may become infected as well Patient reports today that her pain is significantly better she has been off IV antibiotics and is using ibuprofen and Percocet for pain control she has no abnormal discharge now there are no temperature elevations was discussed per the note yesterday I think this is much less likely a tubo-ovarian abscess problem however with a positive Neisseria gonorrhea and the inability be [place]ps[place] certain at this time we will continue the Cipro and Flagyl we will let her go home today patient is agreeable to this she has follow-up with the referral surgeon for the endometriomas in our office has contacted them and they will contact her with an appointment within the next week Coding Level of Care Code None Diagnoses Ovarian cyst N83.201; N83.202 Laterality: bilateral
== END 2020-10-22 10:10 | disposition home or self-care (01) | DRG 760 ==
LOC: 4S2 16:51